=== PATIENT | female | born 2000 | race Caucasian/White ===

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

== ENCOUNTER 2018-01-24 13:01 | Emergency (ER) | payer MEDICAID ==
[2012-02-10 11:07] VITALS: BMI 16.8
[2018-01-24 13:58] LABS: APPEARANCE SLT CLOUDY (CLEAR); COLOR DK YELLOW (YELLOW); NITRITE POSITIVE (NEGATIVE)
[2018-01-24 13:59] LABS: BACTERIA MANY /hpf (NONE SEEN); BILIRUBIN NEGATIVE (NEGATIVE); EPITHELIAL CELLS 0-5 /hpf (0-5); GLUCOSE NEGATIVE (NEGATIVE); KETONE SMALL mg/dL (NEGATIVE); MUCUS <1+ /lpf (NONE SEEN); PROTEIN TRACE mg/dL (NEGATIVE); RED CELLS - URINE 0-5 /hpf (0-5); UROBILINOGEN NORMAL (NORMAL); WHITE CELLS - URINE 25-50 /hpf (0-5)
[2018-01-24 14:11] LABS: BASOPHILS 0.1 % (0-2); EOSINOPHILS 0.2 % (0-7); HEMOGLOBIN 11.8 g/dL (12-16); IMMATURE GRANULOCYTES 0.4 % (0-5); LYMPHOCYTES 2.9 % (15-50); MCH 25.7 pg (26.0-34.0); MCHC 32.8 g/dL (31.0-37.0); MCV 78.4 fL (80.0-100.0); MEAN PLATELET VOLUME 9.4 fL (7.4-10.4); NEUTROPHILS 84.4 % (40-80); PLATELET COUNT 298 10x3/uL (130-400); RBC 4.59 10x6/uL (4.00-5.40); RDW 16.2 % (11.5-14.5); WBC 17.9 10x3/uL (4.8-10.8)
[2018-01-24 14:39] LABS: ALBUMIN 3.4 g/dL (3.4-5.0); ALKALINE PHOSPHATASE 87 U/L (46-116); ALT (SGPT) 14 U/L (10-68); BILIRUBIN - TOTAL 0.84 mg/dL (0.2-1.3); CALC OSMOLALITY 256 mosm/kg (275-300); CALCIUM 8.9 mg/dL (8.5-10.1); CARBON DIOXIDE 26.6 mmol/L (21.0-32.0); CHLORIDE - SERUM 95 mmol/L (98-107); CREATININE - SERUM 0.6 mg/dL (0.6-1.3); GLUCOSE 96 mg/dL (74-106); POTASSIUM - SERUM 3.6 mmol/L (3.5-5.1); PROTEIN - SERUM 7.7 g/dL (6.4-8.2); SODIUM 129 mmol/L (136-145); UREA NITROGEN 6 mg/dL (7-18); eGFR NON AFRICAN AMERICAN > 90 mL/min (90-120)
== END 2018-01-24 18:45 | disposition home or self-care (01) ==
LOC: D.ER 13:01
PROVIDERS: Emergency Medicine
DX: N10 Acute pyelonephritis (principal); E87.1 Hypo-osmolality and hyponatremia

== ENCOUNTER 2018-02-21 16:10 | Emergency (ER) | payer MEDICAID ==
[2012-02-10 11:07] VITALS: BMI 16.8
[2018-02-21 17:02] LABS: BASOPHILS 0.2 % (0-2); EOSINOPHILS 0.6 % (0-7); HEMATOCRIT 31.6 % (36.0-48.0); HEMOGLOBIN 10.2 g/dL (12-16); IMMATURE GRANULOCYTES 0.2 % (0-5); MCH 25.5 pg (26.0-34.0); MCHC 32.3 g/dL (31.0-37.0); MONOCYTES 13.7 % (2-11); NEUTROPHILS 75.3 % (40-80); PLATELET COUNT 328 10x3/uL (130-400); RDW 16.9 % (11.5-14.5); WBC 12.7 10x3/uL (4.8-10.8)
[2018-02-21 17:49] LABS: HCG SERUM NEGATIVE (NEGATIVE)
[2018-02-21 18:13] LABS: UDS - AMPHET POSITIVE QUAL (NEGATIVE); UDS - BARB NEGATIVE QUAL (NEGATIVE); UDS - BENZO POSITIVE QUAL (NEGATIVE); UDS - COCAINE NEGATIVE QUAL (NEGATIVE); UDS - OPIATE NEGATIVE QUAL (NEGATIVE); UDS - PCP NEGATIVE QUAL (NEGATIVE); UDS - THC POSITIVE QUAL (NEGATIVE)
[2018-02-21 18:25] LABS: APPEARANCE HAZY (CLEAR); BACTERIA MANY /hpf (NONE SEEN); BILIRUBIN NEGATIVE (NEGATIVE); COLOR YELLOW (YELLOW); EPITHELIAL CELLS 0-5 /hpf (0-5); GLUCOSE NEGATIVE (NEGATIVE); KETONE NEGATIVE (NEGATIVE); NITRITE NEGATIVE (NEGATIVE); PROTEIN TRACE mg/dL (NEGATIVE); RED CELLS - URINE 0-5 /hpf (0-5); UROBILINOGEN NORMAL (NORMAL)
[2018-02-21 18:31] LABS: ALBUMIN 3.3 g/dL (3.4-5.0); ALKALINE PHOSPHATASE 87 U/L (46-116); ALT (SGPT) 18 U/L (10-68); BILIRUBIN - TOTAL 0.39 mg/dL (0.2-1.3); CALC OSMOLALITY 270 mosm/kg (275-300); CALCIUM 8.6 mg/dL (8.5-10.1); CARBON DIOXIDE 23.5 mmol/L (21.0-32.0); CHLORIDE - SERUM 101 mmol/L (98-107); CREATININE - SERUM 0.6 mg/dL (0.6-1.3); GLUCOSE 83 mg/dL (74-106); POTASSIUM - SERUM 3.6 mmol/L (3.5-5.1); SODIUM 137 mmol/L (136-145); UREA NITROGEN 6 mg/dL (7-18); eGFR NON AFRICAN AMERICAN > 90 mL/min (90-120)
== END 2018-02-21 19:00 | disposition home or self-care (01) ==
LOC: D.ER 16:10
PROVIDERS: Emergency Medicine; Physician Assistant Medical
DX: N39.0 Urinary tract infection, site not specified (principal); F17.200 Nicotine dependence, unspecified, uncomplicated

== ENCOUNTER 2018-07-26 20:36 | Emergency (ER) | payer BC, MEDICAID ==
[2012-02-10 11:07] VITALS: BMI 16.8
== END 2018-07-26 21:40 | disposition left against medical advice (07) ==
LOC: D.ER 20:36
DX: M79.1 Myalgia (principal)

== ENCOUNTER 2019-01-06 17:13 | Emergency (ER) | payer BC ==
[~2019-01-06] VITALS: Ht 162.6 cm; Wt 54.1 kg
[2019-01-06 17:50] VITALS: Ht 162.6 cm; Wt 54.1 kg
[2019-01-06 18:16] LABS: HEMATOCRIT 34.4 % (36.0-48.0); HEMOGLOBIN 10.8 g/dL (12-16); MCH 23.4 pg (26.0-34.0); MCHC 31.4 g/dL (31.0-37.0); MCV 74.5 fL (80.0-100.0); MEAN PLATELET VOLUME 8.9 fL (7.4-10.4); PLATELET COUNT 471 10x3/uL (130-400); RBC 4.62 10x6/uL (4.00-5.40); WBC 23.4 10x3/uL (4.8-10.8)
[2019-01-06 18:23] LABS: APPEARANCE CLEAR (CLEAR); BILIRUBIN NEGATIVE (NEGATIVE); COLOR YELLOW (YELLOW); GLUCOSE NEGATIVE (NEGATIVE); KETONE NEGATIVE (NEGATIVE); NITRITE POSITIVE (NEGATIVE); PROTEIN TRACE mg/dL (NEGATIVE); UROBILINOGEN NORMAL (NORMAL)
[2019-01-06 18:24] LABS: BACTERIA MANY /hpf (NONE SEEN); EPITHELIAL CELLS 0-5 /hpf (0-5); RED CELLS - URINE 0-5 /hpf (0-5)
[2019-01-06 18:33] LABS: ALBUMIN 3.6 g/dL (3.4-5.0); ALKALINE PHOSPHATASE 88 U/L (46-116); ALT (SGPT) 17 U/L (10-68); CALC OSMOLALITY 266 mosm/kg (275-300); CALCIUM 8.6 mg/dL (8.5-10.1); CARBON DIOXIDE 22.5 mmol/L (21.0-32.0); CHLORIDE - SERUM 97 mmol/L (98-107); CREATININE - SERUM 0.8 mg/dL (0.6-1.3); GLUCOSE 102 mg/dL (74-106); POTASSIUM - SERUM 3.6 mmol/L (3.5-5.1); PROTEIN - SERUM 8.9 g/dL (6.4-8.2); SODIUM 134 mmol/L (136-145); UREA NITROGEN 9 mg/dL (7-18); eGFR NON AFRICAN AMERICAN > 90 mL/min (90-120)
[2019-01-06 18:41] LABS: LYMPHOCYTES 9 % (15-50); MONOCYTES 2 % (2-11); NEUTROPHILS 86 % (40-80); PLATELET ESTIMATE INCREASED
[2019-01-06 18:42] LABS: TARGET CELLS 1+
[2019-01-06 18:45] LABS: STOMATOCYTES 1+
[2019-01-06 18:46] LABS: ELLIPTOCYTES OCC
[2019-01-06 18:58] LABS: HCG URINE NEGATIVE (NEGATIVE)
[2019-01-06] MEDS ORDERED: KEFLEX500 MG PO (20:56)
[2019-01-06 21:13] VITALS: BP 107/65
[2019-01-07 15:23] VITALS: Ht 162.6 cm; Wt 54.1 kg
== END 2019-01-06 21:13 | disposition home or self-care (01) ==
LOC: D.ER 17:13
PROVIDERS: Family Medicine
DX: N12 Tubulo-interstitial nephritis, not specified as acute or chronic (principal)

== ENCOUNTER 2019-01-07 07:37 | Inpatient (IN) | payer BC ==
[~2019-01-07] VITALS: Ht 162.6 cm; Wt 58.2 kg
[~2019-01-07 07:37] MED LIST: KEFLEX500 MG PO
[2019-01-07 08:05] LABS: BASOPHILS 0.2 % (0-2); EOSINOPHILS 0.1 % (0-7); HEMATOCRIT 32.8 % (36.0-48.0); HEMOGLOBIN 10.2 g/dL (12-16); IMMATURE GRANULOCYTES 0.3 % (0-5); LYMPHOCYTES 6.7 % (15-50); MCH 23.3 pg (26.0-34.0); MCHC 31.1 g/dL (31.0-37.0); MCV 74.9 fL (80.0-100.0); MEAN PLATELET VOLUME 8.7 fL (7.4-10.4); MONOCYTES 13.2 % (2-11); NEUTROPHILS 79.5 % (40-80); RBC 4.38 10x6/uL (4.00-5.40); RDW 17.2 % (11.5-14.5)
[2019-01-07 08:06] LABS: PLATELET COUNT 356 10x3/uL (130-400)
[2019-01-07 08:27] LABS: ALBUMIN 3.5 g/dL (3.4-5.0); ALKALINE PHOSPHATASE 84 U/L (46-116); ALT (SGPT) 18 U/L (10-68); BILIRUBIN - TOTAL 0.76 mg/dL (0.2-1.3); CALC OSMOLALITY 270 mosm/kg (275-300); CALCIUM 8.6 mg/dL (8.5-10.1); CARBON DIOXIDE 24.5 mmol/L (21.0-32.0); CHLORIDE - SERUM 99 mmol/L (98-107); CREATININE - SERUM 0.9 mg/dL (0.6-1.3); GLUCOSE 102 mg/dL (74-106); POTASSIUM - SERUM 3.7 mmol/L (3.5-5.1); PROTEIN - SERUM 8.6 g/dL (6.4-8.2); SODIUM 136 mmol/L (136-145); UREA NITROGEN 9 mg/dL (7-18); eGFR NON AFRICAN AMERICAN 85 mL/min (90-120)
--- NOTE | 2019-01-07 08:47 | NUR ---
ATTEMPTED TO CALL PT REPORT. NURSE NOT AVAILABLE AT THIS TIME. PT STABLE,CALL LIGHT IWTHISoraida ROOT, WILL CONTINUE TO MONITOR.
--- NOTE | 2019-01-07 09:30 | NUR ---
RECEIVED A/A/OX4. PAIN HAS LESSENED SOME AT PRESENT TIME AND SLEEPING ON AND OFF. ASSESSMENT COMPLETED. BED IN LOW POSITION WITH SIDERAILS UP X 2 AND CALL LIGHT IN REACH. IV PATENT TO RIGHT FOREARM AND INFUSING WELL AT 200CC HR. INFORMED OF NEED FOR URINE SPECIMEN AND CONTAINER PLACED AT BEDSIDE. VERBALIZES UNDERSTANDING. WILL CONTINUE POC.
--- NOTE | 2019-01-07 09:56 | NUR ---
NEW ADMIT FROM ER. EVONINTED TO ROOM. CALL LIGHT IN REACH. WILL CONT. PLAN OF CARE.
[2019-01-07 10:37] VITALS: BP 103/67; BMI 20.4
[2019-01-07 11:18] VITALS: BP 112/59
[2019-01-07 15:23] VITALS: Ht 162.6 cm; Wt 58.2 kg
[2019-01-07 15:36] VITALS: BP 87/43
[2019-01-07 15:58] LABS: % SATURATION 4 % (15-55); IRON 16 ug/dl (35-150); TOTAL IRON BIND CAPACITY 378 ug/dl (260-445); UNSAT IRON BIND CAPACITY 362 ug/dl (150-375)
[2019-01-07 16:15] LABS: APPEARANCE CLEAR (CLEAR); BILIRUBIN NEGATIVE (NEGATIVE); COLOR YELLOW (YELLOW); GLUCOSE NEGATIVE (NEGATIVE); KETONE NEGATIVE (NEGATIVE); NITRITE NEGATIVE (NEGATIVE); PROTEIN NEGATIVE (NEGATIVE); UROBILINOGEN NORMAL (NORMAL)
[2019-01-07 16:17] LABS: BACTERIA FEW /hpf (NONE SEEN); EPITHELIAL CELLS 0-5 /hpf (0-5); RED CELLS - URINE 0-5 /hpf (0-5)
[2019-01-07 16:18] LABS: YEAST <1+ /hpf (NONE SEEN)
--- NOTE | 2019-01-07 17:00 | NUR ---
PT DECLINES SCDS DUE TO UP AD MARK.
--- NOTE | 2019-01-07 19:25 | NUR ---
PT LAYING IN BED ALERT AND ORIENTED BOYFRIEND AT BEDSIDE. PT DENIES ANY PAIN OR NEEDS AT THIS TIME. BED LOW CALL LIGHT WITHIN REACH. WILL CONTINUE TO MONITOR.
[2019-01-07 21:11] VITALS: BP 105/59
[2019-01-08 02:25] VITALS: BP 93/50
[2019-01-08 05:18] LABS: BASOPHILS 0.3 % (0-2); EOSINOPHILS 0.7 % (0-7); HEMATOCRIT 28.7 % (36.0-48.0); IMMATURE GRANULOCYTES 0.2 % (0-5); LYMPHOCYTES 9.7 % (15-50); MCH 23.3 pg (26.0-34.0); MCHC 31.4 g/dL (31.0-37.0); MCV 74.4 fL (80.0-100.0); MEAN PLATELET VOLUME 8.9 fL (7.4-10.4); MONOCYTES 12.9 % (2-11); NEUTROPHILS 76.2 % (40-80); PLATELET COUNT 336 10x3/uL (130-400); RBC 3.86 10x6/uL (4.00-5.40); RDW 16.8 % (11.5-14.5)
[2019-01-08 05:27] LABS: WBC 11.8 10x3/uL (4.8-10.8)
[2019-01-08 05:50] LABS: ALBUMIN 2.8 g/dL (3.4-5.0); ALKALINE PHOSPHATASE 73 U/L (46-116); ALT (SGPT) 14 U/L (10-68); BILIRUBIN - TOTAL 0.51 mg/dL (0.2-1.3); CALC OSMOLALITY 268 mosm/kg (275-300); CALCIUM 8.2 mg/dL (8.5-10.1); CARBON DIOXIDE 23.6 mmol/L (21.0-32.0); CHLORIDE - SERUM 101 mmol/L (98-107); CREATININE - SERUM 0.7 mg/dL (0.6-1.3); GLUCOSE 85 mg/dL (74-106); POTASSIUM - SERUM 3.9 mmol/L (3.5-5.1); PROTEIN - SERUM 7.5 g/dL (6.4-8.2); SODIUM 136 mmol/L (136-145); UREA NITROGEN 7 mg/dL (7-18); eGFR NON AFRICAN AMERICAN > 90 mL/min (90-120)
[2019-01-08 06:24] VITALS: BP 95/51
--- NOTE | 2019-01-08 06:36 | NUR ---
PT RESTING IN BED COMFORTABLY WITH BOYFRIEND AT BEDSIDE. DENIES ANY PAIN OR NEEDS AT THIS TIME. WILL CONTINUE TO MONIOTR.
[2019-01-08 08:14] VITALS: BP 108/72
--- NOTE | 2019-01-08 09:14 | NUR ---
RESTS IN ISOLATION ROOM. CHA NEEDS AT THIS TIME. CALL LIGHT IN REACH.
[2019-01-08 15:52] VITALS: BP 104/76
--- NOTE | 2019-01-08 19:32 | NUR ---
INTRODUCED SELF TO PATIENT, PATIENT PLAYING ON HER PHONE. RESP EVEN AND UNLABORED, NO S/SX OF PAIN OR DISCOMFORT. BED IN LOWEST POSITION, CALL LIGHT IN REACH.
[2019-01-08 20:00] VITALS: BP 102/58
--- NOTE | 2019-01-08 23:00 | NUR ---
PATIENT RESTING QUIETLY IN BED, BOYFRIEND IN BED WITH PATIENT. BED IN LOWEST POSITION, CALL LIGHT IN REACH. NO NEEDS AT THIS TIME.
[2019-01-09 04:00] VITALS: BP 139/75
--- NOTE | 2019-01-09 07:41 | NUR ---
ROUNDING DONE WITH PATIENT AND MALE MEMBER IN BED TOGETHER. SALINE LOCK PIV SEEN TO RIGHT FA. ON ROOM AIR. HERACLIO DENIES NEEDS AT THIS TIME. STATES THAT SHE IS GOING HOME.
[2019-01-09 08:15] VITALS: BP 118/72
--- NOTE | 2019-01-09 09:21 | NUR ---
PATIENT IS SITTING ON BED LAUGHING AND TALKING WITH A FEMALE MEMBER. DEMEANDS TO HAVE HER SALINE LOCK OUT. REMOVED WITH CATH TIP INTACT. APPEARS PAIN FREE.
[2019-01-09 10:20] LABS: FOLATE (FOLIC ACID) - SERUM >20.0 ng/mL (>3.0)
[2019-01-09] MEDS ORDERED: LEVAQUIN750 MG PO (11:22)
[2019-01-09 11:52] VITALS: BP 114/76
--- NOTE | 2019-01-09 12:21 | NUR ---
AWAITING DISCHARGE PAPERWORK. FEMALE MEMBER IN ROOM AT THIS TIME IS GOING TO BE TAKING HER HOME. PATIENT STATES THAT SHE HAS TO BE AT THE [facility]ING ATTORNEYS OFFICE AT 1 PM TODAY.
--- NOTE | 2019-01-09 12:57 | NUR ---
VERBAL AND WRITTEN DISCHARGE INSTRUCTIONS GIVEN TO PATIENT. PATIENT DID NOT WANT TO WAIT ON A WHEELCHAIR AND AMBULATED TO FRONT DOOR.
--- NOTE | 2019-01-09 18:27 | MORECARE ---
CASE MANAGEMENT DISCHARGE SUMMARY PATIENT: MJ RAINES UNIT: [id number] ADM DATE: 01/07/19 AGE: 18 : [birth year] SEX: F ROOM/BED: D.213 AUTHOR: ALLEN WINSTON PHYSICIAN: REFERRING PHYSICIAN: JUAN CARLOS ARREOLA MD DATE OF SERVICE: 01/09/19 Discharge Plan Patient Name: [facility] RAIN[facility] [facility] 2000 Planned Disposition: Home Anticipated Discharge Date: 01/09/19 Discharge Date: 01/09/2019 Expected LOS: 2 Initial Reviewer: [email or web address] Initial Review Date: 01/09/2019 Generated: 01/09/19 7:27 pm DCPIA - Discharge Planning Initial Assessment Updated by [email or web address]: Efrain Liao on 01/09/19 6:27 pm * Is the patient Alert and Oriented? Yes * How many steps to enter\exit or inside your home? * PCP NONE - [facility] REFERRED * Pharmacy [facility] * Preadmission Environment Home with Family * ADLs Independent * Equipment None * Other Equipment NO MEDICAL EQUIPMENT PROVIDER PREFERENCE * List name and contact numbers for known caregivers / representatives who currently or will assist patient after discharge: JENNIFER RAINES, FATHER, * Verbal permission to speak to the caregivers and representatives has been obtained from the patient. N/A * Community resources currently utilized None * Please name any agencies selected above. NONE * Additional services required to return to the preadmission environment? No * Can the patient safely return to the preadmission environment? Yes * Has this patient been hospitalized within the prior 30 days at any hospital? No Patient Name: MJ RAINES Page [id number] at 1827 All edits/amendments must be made on the electronic document DICTATION DATE: 01/09/191826 MASH PROCESSING OPERATOR: PEMA 01/09/191826 RPT#: [id number] DC DATE:01/09/19 STATUS: DIS IN [facility] [address] [place] [address] END OF REPORT
--- NOTE | 2019-01-09 18:36 | MORECARE ---
CASE MANAGEMENT DISCHARGE SUMMARY PATIENT: MJ RAINES UNIT: [id number] ADM DATE: 01/07/19 AGE: 18 : [birth year] SEX: F ROOM/BED: D.2922 AUTHOR: CATRACHITO,DOC PHYSICIAN: REFERRING PHYSICIAN: JUAN CARLOS ARREOLA MD DATE OF SERVICE: 01/09/19 Discharge Plan Patient Name: MJ RAINES Facility[facility]:[place] : 2000 Planned Disposition: Home Anticipated Discharge Date: 01/09/19 Discharge Date: 01/09/2019 Expected LOS: 2 Initial Reviewer: [email or web address] Initial Review Date: 01/09/2019 Generated: 01/09/19 7:36 pm Comments DCP- Discharge Planning Updated by [email or web address]: Efrain Liao on 01/09/19 5:[address] Patient Name: MJ RAINES Admission Status: ER Accout number: [id number] Admission Date: 01-07-2019 : 2000 Admission Diagnosis: Attending: JUAN CARLOS ARREOLA Current LOS: 2 Anticipated DC Date: 01-09-2019 Planned Disposition: Home Primary Insurance: [employer] Discharge Planning Comments: CM MET WITH PT IN ROOM TO DISCUSS DISCHARGE PLANNING AND NEEDS. PT REPORTS LIVING AT HOME INDEPENDENTLY WITH HER FIANCE. PT HAS NO MEDICAL EQUIPMENT AND NO OUTSIDE SERVICES ASSISTING IN THE HOME. CM DISCUSSED AVAILABILITY OF HOME HEALTH, REHAB SERVICES AND MEDICAL EQUIPMENT. PT DENIES DISCHARGE NEEDS, REPORTS HER FRIEND WILL PICK HER UP FOR DISCHARGE HOME. BOX WORKER NURSE NOTIFIED. Patient Ambassador: Efrain Liao DCPIA - Discharge Planning Initial Assessment Updated by [email or web address]: Efrain Liao on 01/09/19 6:27 pm * Is the patient Alert and Oriented? Yes * How many steps to enter\exit or inside your home? * PCP NONE - [facility] REF[facility] * [facility] * Preadmission Environment Home with Family * ADLs Independent * Equipment None * Other Equipment NO MEDICAL EQUIPMENT PROVIDER PREFERENCE * List name and contact numbers for known caregivers / representatives who currently or will assist patient after discharge: JENNIFER RAINES, FATHER, * Verbal permission to speak to the caregivers and representatives has been obtained from the patient. N/A * Community resources currently utilized None * Please name any agencies selected above. NONE * Additional services required to return to the preadmission environment? No * Can the patient safely return to the preadmission environment? Yes * Has this patient been hospitalized within the prior 30 days at any hospital? No Last DP export: 01/09/19 5:27 p Patient Name: MJ RAINES Page [id number] at 1836 All edits/amendments must be made on the electronic document DICTATION DATE: 01/09/191835 INSTRUMENT MECHANIC WEAPONS SYSTEM: PEMA 01/09/191835 RPT#: [id number] DC DATE:01/09/19 STATUS: DIS IN [facility] [address] [place] [address] END OF REPORT
== END 2019-01-09 13:00 | disposition home or self-care (01) | DRG 872 ==
LOC: D.ER 07:37 → D.EDHOLD 08:08 → D.M2 08:08
PROVIDERS: Family Medicine; ADMIT Internal Medicine Nephrology
DX: A41.9 Sepsis, unspecified organism (principal); N10 Acute pyelonephritis; F17.213 Nicotine dependence, cigarettes, with withdrawal; D50.9 Iron deficiency anemia, unspecified

== ENCOUNTER 2019-09-28 04:08 | Emergency (ER) | payer BC ==
[~2019-09-28] VITALS: Ht 162.6 cm; Wt 46.4 kg
[~2019-09-28 04:08] MED LIST changes: +LEVAQUIN750 MG PO
[2019-09-28 04:10] VITALS: Ht 162.6 cm; Wt 46.4 kg
[2019-09-28 04:27] LABS: HCG URINE NEGATIVE (NEGATIVE)
[2019-09-28 04:32] LABS: APPEARANCE HAZY (CLEAR); BACTERIA MANY /hpf (NEGATIVE); BILIRUBIN NEGATIVE (NEGATIVE); COLOR YELLOW (YELLOW); EPITHELIAL CELLS 0-5 /hpf (0-5); GLUCOSE NEGATIVE (NEGATIVE); KETONE SMALL mg/dL (NEGATIVE); NITRITE POSITIVE (NEGATIVE); PROTEIN TRACE mg/dL (NEGATIVE); UROBILINOGEN NORMAL (NORMAL); WHITE CELLS - URINE 0-5 /hpf (NEGATIVE)
[2019-09-28 04:35] LABS: UDS - AMPHET POSITIVE QUAL (NEGATIVE); UDS - BARB NEGATIVE QUAL (NEGATIVE); UDS - BENZO NEGATIVE QUAL (NEGATIVE); UDS - COCAINE NEGATIVE QUAL (NEGATIVE); UDS - OPIATE NEGATIVE QUAL (NEGATIVE); UDS - PCP NEGATIVE QUAL (NEGATIVE); UDS - THC POSITIVE QUAL (NEGATIVE)
[2019-09-28 04:36] LABS: BASOPHILS 0.5 % (0-2); EOSINOPHILS 2.4 % (0-7); HEMATOCRIT 39.4 % (36.0-48.0); HEMOGLOBIN 12.6 g/dL (12-16); IMMATURE GRANULOCYTES 0.2 % (0-5); LYMPHOCYTES 20.5 % (15-50); MCH 26.1 pg (26.0-34.0); MCV 81.6 fL (80.0-100.0); MEAN PLATELET VOLUME 8.9 fL (7.4-10.4); MONOCYTES 12.7 % (2-11); NEUTROPHILS 63.7 % (40-80); PLATELET COUNT 435 10x3/uL (130-400); RBC 4.83 10x6/uL (4.00-5.40); RDW 15.5 % (11.5-14.5); WBC 6.6 10x3/uL (4.8-10.8)
[2019-09-28 04:45] LABS: CALC OSMOLALITY 280 mosm/kg (275-300); CALCIUM 8.7 mg/dL (8.5-10.1); CARBON DIOXIDE 27.7 mmol/L (21.0-32.0); CHLORIDE - SERUM 104 mmol/L (98-107); CREATININE - SERUM 0.8 mg/dL (0.6-1.3); GLUCOSE 89 mg/dL (74-106); POTASSIUM - SERUM 3.5 mmol/L (3.5-5.1); SODIUM 142 mmol/L (136-145); UREA NITROGEN 9 mg/dL (7-18); eGFR NON AFRICAN AMERICAN > 90 mL/min (90-120)
[2019-09-28 04:51] LABS: ALBUMIN 4.1 g/dL (3.4-5.0); ALKALINE PHOSPHATASE 91 U/L (46-116); ALT (SGPT) 23 U/L (10-68); BILIRUBIN - TOTAL 0.35 mg/dL (0.2-1.3); PROTEIN - SERUM 8.5 g/dL (6.4-8.2)
[2019-09-28] MEDS ORDERED: MACROBID100 MG PO (04:53)
[2019-09-28] MEDS ORDERED: CYCLOBENZAPRINE10 MG PO (04:54)
--- NOTE | 2019-09-28 05:06 | NUR ---
DR PATTERSON NOTIFIED AND REVIEWED AND REVIEWED PT'S BEHAVIOR AND ASSESSMENT RESULTS. PT IS A LOW RISK PER DR PATTERSON. DR PATTERSON STATED TO GIVE RESOURCES TO PT AT TIME OF DISCHARGE. NO FURTHER ORDERS AT THIS TIME. RESOURCES REVIEWED WITH PT AND SHE VERBALIZED UNDERSTANDING.
[2019-09-28 05:16] VITALS: BP 128/78
== END 2019-09-28 05:17 | disposition home or self-care (01) ==
LOC: D.ER 04:08
PROVIDERS: Family Medicine
DX: R51 Headache (principal); N39.0 Urinary tract infection, site not specified

== ENCOUNTER 2019-10-21 16:22 | Emergency (ER) | payer BC ==
[2019-09-28 04:10] VITALS: BMI 17.5
[~2019-10-21 16:22] MED LIST changes: +CYCLOBENZAPRINE10 MG PO; +MACROBID100 MG PO
== END 2019-10-21 17:24 | disposition left against medical advice (07) ==
LOC: D.ER 16:22
DX: S67.198A Crushing injury of other finger, initial encounter (principal); X58.XXXA Exposure to other specified factors, initial encounter